=== PATIENT | female | born 1985 | race Caucasian/White ===

== ENCOUNTER 2023-09-11 11:26 | Day surgery (SDC) | payer OTHER ==
[2023-09-11] VITALS (7 sets, daily range): BP systolic 104–151; BP diastolic 45–96; PULSE 65–103; TEMP 97.4–97.7
[~2023-09-11] VITALS: Ht 162.6 cm; Wt 139.3 kg
[~2023-09-11 11:26] MED LIST: LR 1,000 ML IV SCH
[2023-09-11] MEDS ORDERED: PRISTIQ 50 MG T50 MG PO (11:53)
[2023-09-11] MEDS ORDERED: XANAX 0.5MG0.5 MG PO (11:53)
[2023-09-11] MEDS ORDERED: LAMICTAL 100MG100 MG PO (11:54)
[2023-09-11] MEDS ORDERED: HCTZ12.5TAB PO (11:54)
[2023-09-11] MEDS ORDERED: SEROQUEL300 MG PO (11:54)
[2023-09-11] MEDS ORDERED: TRELEGY ELLIPT1 EAC1 IH (11:56)
[2023-09-11] MEDS ORDERED: Indocyanine Green 12.5 MG in Water For Injection,Sterile 2.5 ML IV ONE (12:30)
[2023-09-11] MEDS ORDERED: fentaNYL 50 MCG/ML 5 ML VIAL ONE (14:00)
[2023-09-11] MEDS ORDERED: Lidocaine PF 2% (20 MG/ML) 5 ML VIAL ONE ×2 (14:00→15:37)
[2023-09-11] MEDS ORDERED: Rocuronium 50 MG/5 ML Multi-Dose VIAL ONE (14:00)
[2023-09-11] MEDS ORDERED: Ondansetron 4 MG/2 ML VIAL IV PRN ×2 (14:15→15:00)
[2023-09-11] MEDS ORDERED: NORCO 325 MG-51 TAB PO (14:17)
[2023-09-11] MEDS ORDERED: dexAMETHasone 10 MG/ML VIAL ONE (14:39)
[2023-09-11] MEDS ORDERED: Ondansetron 4 MG/2 ML VIAL ONE (14:39)
[2023-09-11] MEDS ORDERED: Metoprolol Tartrate 5 MG/5 ML VIAL IV ONE (14:42)
[2023-09-11] MEDS ORDERED: Meperidine 50 MG/ML 1 ML VIAL IV PRN (15:00)
[2023-09-11] MEDS ORDERED: HYDROmorphone 2 MG/1 ML VIAL IV PRN (15:00)
[2023-09-11] MEDS ORDERED: droPERidol 2.5 MG/ML 2 ML VIAL IV PRN (15:00)
[2023-09-11] MEDS ORDERED: fentaNYL 50 MCG/ML 2 ML VIAL IV PRN (15:00)
[2023-09-11] MEDS ORDERED: Ketorolac 30 MG/ML VIAL ONE (15:11)
[2023-09-11] MEDS ORDERED: Topical Skin Adhesive 1 EACH (1 ML) TOP ONE (15:34)
--- NOTE | 2023-09-11 16:30 | NUR ---
PATIENT RETURNED TO ROOM 4 VIA CART, ALERT AND ORIENTED X3. RATES PAIN TOLERABLE 2/10 TO ABDOMEN. BREATHING REGULAR AND UNLABORED ON 3L VIA NASAL CANNULA. PATIENT ENCOURAGED TO COUGH AND DEEP BREATHE. BILATERAL UPPER LOBES CLEAR, DIMINISHED TOWARD BASES. SKIN WARM AND DRY. SEE CHART FOR VITAL SIGNS. NURSE HANDOFF COMPLETED IN ROOM. RIGHT FOREARM IV IN PLACE. 4 ABDOMINAL INCISIONS WITH SKIN GLUE. EACH INCISION CLEAN AND DRY WITH SKIN GLUE INTACT. ABDOMEN SOFT, OBESE. PATIENT STATES SHE FEELS HOT AND SLIGHTY NAUSEOUS DUE TO THIS. REQUESTS JUICE AND JELLO. PATIENT HAD JUICE AND JELLO, BOTH TOLERATED WELL WITH NO DYSPHAGIA. FAN PLACED IN ROOM FOR PATIENT. CALL LIGHT IN REACH.
--- NOTE | 2023-09-11 17:22 | NUR ---
PATIENT REPORTS 4/10 ABDOMINAL PAIN, REQUESTS MEDICATION. DISCUSSED PAIN MANAGEMENT PLAN WITH PATIENT. SEE EMAR FOR MEDICATION GIVEN.
--- NOTE | 2023-09-11 18:15 | NUR ---
1757: DISCHARGE TEACHING COMPLETED WITH PRINTED EDUCATION AND INSTRUCTIONS SENT HOME WITH PATIENT. FOLLOW UP APPOINTMENT DATE, TIME AND LOCATION COMMUNICATED TO PATIENT. PATIENT VERBALIZED UNDERSTANDING OF TEACHING. 1758: PATIENT AMBULATED TO RESTROOM WITH STEADY GAIT AND VOIDED WITHOUT DIFFICULTY. STATED THAT HER PAIN DID INCREASE WITH ACTIVITY, BUT DESCRIBED IT TOLERABLE PAIN. DENIED ADDITIONAL INTERVENTIONS, STATING SHE WANTED TO GO HOME AND REST. 1800: IV REMOVED. GAUZE AND COBAN PLACED OVER SITE. 1815: PATIENT DISCHARGED HOME WITH ROOMMATE, MERARY, TRANSPORT.
== END 2023-09-11 18:15 | disposition home or self-care (01) ==
LOC: SDCO 11:26
DX: K81.1 Chronic cholecystitis (principal); K82.8 Other specified diseases of gallbladder; E66.01 Morbid (severe) obesity due to excess calories; Z68.43 Body mass index [BMI] 50.0-59.9, adult
CPT/HCPCS: J0690; J1100; J1170; J1885; J2405; J2704; J3010; J7120

== ENCOUNTER → 2023-12-18 | Outpatient (CLI) | payer OTHER ==
[~2023-12-18] MED LIST changes: +Albuterol 0.083% Neb Soln 2.5 MG/3 ML UD IH ONE; +HCTZ12.5TAB PO; +LAMICTAL 100MG100 MG PO; -LR 1,000 ML IV SCH; +NORCO 325 MG-51 TAB PO; +PRISTIQ 50 MG T50 MG PO; +SEROQUEL300 MG PO; +TRELEGY ELLIPT1 EAC1 IH; +XANAX 0.5MG0.5 MG PO
== END ==
LOC: COL.CARD 09:40
DX: Z87.09 Personal history of other diseases of the respiratory system (principal); Z87.891 Personal history of nicotine dependence